=== PATIENT | female | born 1975 | race Two or more races ===

== ENCOUNTER 2024-11-03 02:10 | Emergency (ER) | payer OTHER ==
[~2024-11-03] VITALS: Ht 157.5 cm; Wt 137.0 kg
[2024-11-03] MEDS ORDERED: ONDANSETRON ODT 4 MG TAB.RAPDIS ONE (03:17)
[2024-11-03] MEDS ORDERED: ACETAMINOPHEN 500 MG TABLET ONE (03:17)
[2024-11-03] MEDS: ONDANSETRON HCL 4 MG TABLET PO ONE (03:18)
[2024-11-03] MEDS: ACETAMINOPHEN 500 MG TABLET PO ONE (03:18)
[2024-11-03 04:46] VITALS: TEMP 98
[2024-11-03 05:00] VITALS: BP 120/51; O2SAT 98
[2024-11-03 05:07] LABS: *BILIRUBIN,URIN NEGATIVE (NEGATIVE); *CLARITY,URINE CLEAR (CLEAR); *COLOR,URINE YELLOW (YELLOW); *KETONES,URINE NEGATIVE (NEGATIVE); *PROTEIN,URINE 2+ (NEGATIVE); *UROBILINOGEN,URINE 0.2 E.U./dl (NORMAL); LEUKOCYTE ESTERASE ,URINE NEGATIVE (NEGATIVE); NITRITE, URINE NEGATIVE (NEGATIVE); PH,URINE 5.5 (5.0-8.0)
[2024-11-03 05:11] LABS: *BLOOD, URINE TRACE (NEGATIVE); UGLUCOSE 3+ (NEGATIVE)
[2024-11-03 05:12] LABS: *URINE HCG, QUAL NEGATIVE (NEGATIVE)
[2024-11-03 05:30] LABS: BACTERIA,URINE MODERATE /HPF (NONE SEEN); SQUAMOUS EPITHELIAL CELL,UR MODERATE /HPF (NONE SEEN)
[2024-11-03 05:31] LABS: YEAST,URINE BUDDING YEAST /HPF (NONE SEEN)
== END 2024-11-03 05:05 | disposition home or self-care (01) ==
LOC: ER 02:10
DX: R07.89 Other chest pain (principal); R10.9 Unspecified abdominal pain; M25.561 Pain in right knee; M25.562 Pain in left knee; R51.9 Headache, unspecified; R11.0 Nausea; V43.52XA Car driver injured in collision with other type car in traffic accident, initial encounter; Y93.89 Activity, other specified; Y92.410 Unspecified street and highway as the place of occurrence of the external cause; Y99.8 Other external cause status
CPT/HCPCS: 70450; 71250; 72125; 84703; A4606; A4663; A9150; Q0162